=== PATIENT | female | born 1960 | race Caucasian/White ===

== ENCOUNTER 2016-06-25 20:38 | Inpatient (IN) | payer OTHER ==
[~2016-06-25] VITALS: Ht 162.6 cm; Wt 92.6 kg
[2016-06-25] MEDS ORDERED: FAMOTIDINE 20 MG/2 ML IVP ONE (21:00)
[2016-06-25] MEDS ORDERED: SODIUM CHLORIDE FLUSH 10ML SYR IVF ONE (21:00)
[2016-06-25] MEDS ORDERED: ONDANSETRON 2MG/ML, 2ML IVPush ONE (21:00)
[2016-06-25] MEDS ORDERED: FAMOTIDINE 20 MG/2 ML ONE (21:13)
[2016-06-25] MEDS ORDERED: ONDANSETRON 2MG/ML, 2ML ONE (21:13)
[2016-06-25] MEDS ORDERED: SODIUM CHLORIDE 0.9% 1,000ML IVBOLUS ONE ×2 (21:30→23:30)
[2016-06-25 21:40] LABS: ASPARTATE AMINO TRANSFERASE 28 U/L (15-37); BLOOD UREA NITROGEN 73 mg/dL (7-18)
[2016-06-25] MEDS ORDERED: FLUC100T4 PO (21:57)
[2016-06-25] MEDS ORDERED: VICTOZA (21:57)
[2016-06-25] MEDS ORDERED: METF10002 PO (21:57)
[2016-06-25] MEDS ORDERED: ENAL20TA PO (21:57)
[2016-06-25] MEDS ORDERED: GLIP10TA20 PO (21:57)
[2016-06-25] MEDS ORDERED: URSO250T9 PO (22:48)
[2016-06-26] MEDS ORDERED: CALCIUM CARBONATE 500 MG TAB.CHEW PO PRN
[2016-06-26] MEDS ORDERED: ONDANSETRON 2MG/ML, 2ML ONE (01:12)
[2016-06-26] MEDS: ONDANSETRON 2MG/ML, 2ML IVP PRN ×2 (01:15→11:57)
[2016-06-26] MEDS: SODIUM CHLORIDE 0.9% 1,000 ML IV SCH ×3 (02:04→11:58)
[2016-06-26 05:27] LABS: BLOOD UREA NITROGEN 74 mg/dL (7-18)
[2016-06-26] MEDS: HEPARIN 5,000 UNITS/ML, 1ML SQ SCH ×3 (05:58→21:29)
[2016-06-26 06:44] VITALS: BP 113/57
[2016-06-26] MEDS: INSULIN REGULAR 100 UNITS/ML, 3ML VIAL SQ-INSULIN SCH ×4 (07:00→21:35)
[2016-06-26 08:45] LABS: PATH.CAST-FLAG NOT PRESENT; SPERM-FLAG NOT PRESENT; SRC-FLAG NOT PRESENT; XTAL-FLAG NOT PRESENT; YLC-FLAG NOT PRESENT
[2016-06-26 14:00] VITALS: BP 106/65
[2016-06-26] MEDS: SODIUM BICARBONATE 8.4% 75 MEQ in SODIUM CHLORIDE 0.45% 1,000 ML IV SCH (15:30)
[2016-06-26] MEDS ORDERED: CEFTRIAXONE PMX 1GM/50ML 50 ML IV SCH (15:30)
[2016-06-26] MEDS ORDERED: PHARMACY MAY ADJ FOR RENAL FX MC PRN (16:00)
[2016-06-26] MEDS: CIPROFLOXACIN/PMX 400MG/200ML 200 ML IV SCH (18:43)
[2016-06-26 19:09] VITALS: BP 131/69
[2016-06-26] MEDS ORDERED: SODIUM CHLORIDE 0.9% 1,000 ML IV SCH (23:53)
[2016-06-27] MEDS: SODIUM BICARBONATE 8.4% 75 MEQ in SODIUM CHLORIDE 0.45% 1,000 ML IV SCH (00:11)
[2016-06-27 02:01] VITALS: BP_SYST 82; BP_SYST 92; BP_DIAS 42; BP_DIAS 44
[2016-06-27] MEDS: HEPARIN 5,000 UNITS/ML, 1ML SQ SCH ×3 (06:08→21:23)
[2016-06-27 06:35] LABS: BLOOD UREA NITROGEN 75 mg/dL (7-18)
[2016-06-27 08:00] VITALS: BP 123/63
[2016-06-27] MEDS: INSULIN REGULAR 100 UNITS/ML, 3ML VIAL SQ-INSULIN SCH ×2 (08:03→11:54)
[2016-06-27 08:53] LABS: HEPATITIS C VIRUS ANTIBODY Nonreactive (Nonreactive)
[2016-06-27] MEDS: ALLOPURINOL 100 MG TABLET PO SCH (09:00)
[2016-06-27] MEDS ORDERED: MAALOX/HYOSCYAMINE/LIDOCAINE 45 ML BOTTLE PO PRN (11:30)
[2016-06-27] MEDS ORDERED: FAMOTIDINE 20 MG TABLET PO PRN (11:30)
[2016-06-27 14:00] VITALS: BP 131/75
[2016-06-27] MEDS ORDERED: SODIUM BICARBONATE 8.4% 75 MEQ in SODIUM CHLORIDE 0.45% 1,000 ML IV SCH (14:30)
[2016-06-27 15:11] LABS: BLOOD UREA NITROGEN 71 mg/dL (7-18)
[2016-06-27] MEDS: FAMOTIDINE MC SCH ×2 (16:00→23:41)
[2016-06-27] MEDS: PANTOPRAZOLE MC SCH ×2 (16:00→23:41)
[2016-06-27] MEDS: SODIUM CHLORIDE 0.9% 1,000 ML IV SCH ×2 (17:10→23:18)
[2016-06-27] MEDS: INSULIN ASPART 100 UNITS/ML, PEN SQ-INSULIN SCH ×2 (17:24→21:22)
[2016-06-27] MEDS: CIPROFLOXACIN/PMX 400MG/200ML 200 ML IV SCH (18:17)
[2016-06-27 18:58] VITALS: BP 142/62
[2016-06-28 02:12] VITALS: BP 106/64
[2016-06-28] MEDS: SODIUM CHLORIDE 0.9% 1,000 ML IV SCH ×4 (04:49→18:17)
[2016-06-28 05:06] LABS: BLOOD UREA NITROGEN 57 mg/dL (7-18)
[2016-06-28] MEDS ORDERED: PANTOPRAZOLE 20MG TABLET PO SCH (07:30)
[2016-06-28] MEDS: PANTOPRAZOLE MC SCH (08:00)
[2016-06-28] MEDS: FAMOTIDINE MC SCH (08:00)
[2016-06-28 08:35] VITALS: BP 101/51
[2016-06-28] MEDS: INSULIN ASPART 100 UNITS/ML, PEN SQ-INSULIN SCH ×4 (08:41→22:36)
[2016-06-28] MEDS: PANTOPRAZOLE 20MG TABLET PO SCH ×2 (08:42→21:47)
[2016-06-28] MEDS: ALLOPURINOL 100 MG TABLET PO SCH (08:43)
[2016-06-28] MEDS: HEPARIN 5,000 UNITS/ML, 1ML SQ SCH ×2 (08:44→17:39)
[2016-06-28] MEDS ORDERED: MAGNESIUM SULFATE PMX 4GM/100M 100 ML IV ONE (11:00)
[2016-06-28] MEDS ORDERED: MAGNESIUM SULFATE PMX 2GM/50ML 50 ML IV ONE (11:00)
[2016-06-28] MEDS: POTASSIUM CHLORIDE 20 MEQ TAB.ER.PRT PO SCH (12:01)
[2016-06-28] MEDS: MAGNESIUM OXIDE 400 MG TABLET PO SCH ×2 (12:01→21:47)
[2016-06-28 13:06] LABS: UR ALBUMIN 33.9 % (.); UR ALPHA-1-GLOBULIN 0.9 % (.); UR BETA GLOBULIN 30.4 % (.); UR GAMMA GLOBULIN 31.9 % (.); UR M-SPIKE % Not Observed % (Not Observed)
[2016-06-28] MEDS ORDERED: MAALOX/HYOSCYAMINE/LIDOCAINE 45 ML BOTTLE PO ONE (14:00)
[2016-06-28 14:15] VITALS: BP 126/69
[2016-06-28] MEDS ORDERED: FAMOTIDINE 20 MG TABLET PO PRN (15:00)
[2016-06-28] MEDS ORDERED: PANTOPRAZOLE MC SCH ×2 (16:00)
[2016-06-28] MEDS ORDERED: FAMOTIDINE MC SCH ×2 (16:00)
[2016-06-28] MEDS: CIPROFLOXACIN/PMX 400MG/200ML 200 ML IV SCH (18:17)
[2016-06-28 18:54] VITALS: BP 125/73
[2016-06-29 00:50] VITALS: BP 107/70
[2016-06-29] MEDS: SODIUM CHLORIDE 0.9% 1,000 ML IV SCH ×5 (00:58→18:43)
[2016-06-29] MEDS: HEPARIN 5,000 UNITS/ML, 1ML SQ SCH ×3 (01:17→16:53)
[2016-06-29 05:42] LABS: BLOOD UREA NITROGEN 40 mg/dL (7-18)
[2016-06-29 07:47] VITALS: BP 104/56
[2016-06-29] MEDS ORDERED: MAGNESIUM SULFATE PMX 4GM/100M 100 ML IV ONE (08:00)
[2016-06-29] MEDS: INSULIN ASPART 100 UNITS/ML, PEN SQ-INSULIN SCH ×4 (08:24→22:19)
[2016-06-29] MEDS: PANTOPRAZOLE 20MG TABLET PO SCH ×2 (08:25→20:55)
[2016-06-29] MEDS: POTASSIUM CHLORIDE 20 MEQ TAB.ER.PRT PO SCH (08:25)
[2016-06-29] MEDS: MAGNESIUM OXIDE 400 MG TABLET PO SCH ×2 (08:25→20:56)
[2016-06-29] MEDS: ALLOPURINOL 100 MG TABLET PO SCH (08:26)
[2016-06-29 14:48] VITALS: BP 128/73
[2016-06-29] MEDS: CIPROFLOXACIN/PMX 400MG/200ML 200 ML IV SCH (18:43)
[2016-06-29 19:19] VITALS: BP 119/62
[2016-06-30] MEDS ORDERED: TEMAZEPAM 15 MG CAPSULE PO PRN (00:30)
[2016-06-30 01:06] VITALS: BP 131/78
[2016-06-30] MEDS: HEPARIN 5,000 UNITS/ML, 1ML SQ SCH ×3 (01:25→16:31)
[2016-06-30] MEDS: SODIUM CHLORIDE 0.9% 1,000 ML IV SCH ×4 (02:48→20:12)
[2016-06-30 06:42] LABS: ASPARTATE AMINO TRANSFERASE 101 U/L (15-37); BLOOD UREA NITROGEN 25 mg/dL (7-18); TOTAL IRON BINDING CAPACITY 339 mcg/dL (250-450)
[2016-06-30] MEDS: INSULIN ASPART 100 UNITS/ML, PEN SQ-INSULIN SCH ×4 (08:04→21:04)
[2016-06-30] MEDS: PANTOPRAZOLE 20MG TABLET PO SCH ×2 (08:47→21:03)
[2016-06-30] MEDS: ALLOPURINOL 100 MG TABLET PO SCH (08:47)
[2016-06-30] MEDS: MAGNESIUM OXIDE 400 MG TABLET PO SCH ×2 (08:47→21:04)
[2016-06-30] MEDS: POTASSIUM CHLORIDE 20 MEQ TAB.ER.PRT PO SCH (08:47)
[2016-06-30 09:45] VITALS: BP 141/78
[2016-06-30] MEDS ORDERED: CIPROFLOXACIN/PMX 400MG/200ML 200 ML IV SCH (11:00)
[2016-06-30] MEDS ORDERED: MAGNESIUM SULFATE PMX 2GM/50ML 50 ML IV ONE (13:00)
[2016-06-30 16:11] VITALS: BP 125/76
[2016-06-30] MEDS ORDERED: KETOROLAC 30 MG/1 ML IVPush ONE (19:00)
[2016-06-30 20:32] VITALS: BP 123/70
[2016-06-30] MEDS: CIPROFLOXACIN 750 MG TABLET PO SCH (21:04)
[2016-07-01] MEDS: HEPARIN 5,000 UNITS/ML, 1ML SQ SCH ×3 (00:45→16:24)
[2016-07-01 02:51] VITALS: BP 147/81
[2016-07-01] MEDS: SODIUM CHLORIDE 0.9% 1,000 ML IV SCH ×3 (03:13→15:19)
[2016-07-01 05:23] LABS: BLOOD UREA NITROGEN 25 mg/dL (7-18)
[2016-07-01 07:32] VITALS: BP 133/58
[2016-07-01] MEDS: INSULIN ASPART 100 UNITS/ML, PEN SQ-INSULIN SCH ×3 (08:09→16:24)
[2016-07-01] MEDS: MAGNESIUM OXIDE 400 MG TABLET PO SCH (08:10)
[2016-07-01] MEDS: CIPROFLOXACIN 750 MG TABLET PO SCH (08:10)
[2016-07-01] MEDS: POTASSIUM CHLORIDE 20 MEQ TAB.ER.PRT PO SCH (08:10)
[2016-07-01] MEDS: PANTOPRAZOLE 20MG TABLET PO SCH (08:11)
[2016-07-01] MEDS: ALLOPURINOL 100 MG TABLET PO SCH (08:11)
[2016-07-01 12:06] LABS: A/G RATIO 1.2 (0.7-1.7); ALBUMIN 3.1 g/dL (2.9-4.4); ALPHA-1-GLOBULIN 0.1 g/dL (0.0-0.4); GAMMA GLOBULIN 0.6 g/dL (0.4-1.8); IMMUNOGLOBULIN A 253 mg/dL (87-352); IMMUNOGLOBULIN G 617 mg/dL (700-1600); IMMUNOGLOBULIN M 69 mg/dL (26-217); PROTEIN TOTAL 5.8 g/dL (6.0-8.5)
[2016-07-01 14:28] VITALS: BP 138/62
[2016-07-01] MEDS ORDERED: POTA20TA6 PO (15:19)
[2016-07-01] MEDS ORDERED: CIPR750T PO (15:19)
[2016-07-01] MEDS ORDERED: ALLO100T30 PO (15:19)
[2016-07-01] MEDS ORDERED: PANT40TA5 PO (15:20)
== END 2016-07-01 17:01 | disposition home or self-care (01) | DRG 682 ==
LOC: ED 22:05 → EDIP 23:28 → 4NOR 06-26 01:25
PROVIDERS: ATTEND Family Medicine
PROC: 0T9B70Z Drainage of Bladder with Drainage Device, Via Natural or Artificial Opening (ICD-10-PCS; principal; 2016-06-30)
DX: N17.9 Acute kidney failure, unspecified (principal); K85.90 Acute pancreatitis without necrosis or infection, unspecified; E87.2 Acidosis; E87.1 Hypo-osmolality and hyponatremia; N39.0 Urinary tract infection, site not specified; R19.7 Diarrhea, unspecified; D64.9 Anemia, unspecified; E83.42 Hypomagnesemia; D63.8 Anemia in other chronic diseases classified elsewhere; E11.65 Type 2 diabetes mellitus with hyperglycemia; E66.01 Morbid (severe) obesity due to excess calories; E83.39 Other disorders of phosphorus metabolism; E83.51 Hypocalcemia; E87.6 Hypokalemia; E88.01 Alpha-1-antitrypsin deficiency; F17.200 Nicotine dependence, unspecified, uncomplicated; B95.1 Streptococcus, group B, as the cause of diseases classified elsewhere; B96.1 Klebsiella pneumoniae [K. pneumoniae] as the cause of diseases classified elsewhere; I11.9 Hypertensive heart disease without heart failure; K21.9 Gastro-esophageal reflux disease without esophagitis; K70.9 Alcoholic liver disease, unspecified; K75.81 Nonalcoholic steatohepatitis (NASH); N28.1 Cyst of kidney, acquired; R13.10 Dysphagia, unspecified; R31.29 Other microscopic hematuria; Z68.35 Body mass index [BMI] 35.0-35.9, adult; Z86.19 Personal history of other infectious and parasitic diseases; Z88.0 Allergy status to penicillin; Z90.49 Acquired absence of other specified parts of digestive tract; Z88.8 Allergy status to other drugs, medicaments and biological substances
CPT/HCPCS: 36415; 74220; 76770; 80048; 80053; 80074; 81001; 82306; 82436; 82550; 82570; 82728; 82784; 82962; 83036; 83540; 83550; 83605; 83690; 83735; 83935; 83970; 84100; 84133; 84155; 84156; 84165; 84166; 84300; 84439; 84443; 84550; 85025; 85610; 86038; 86160; 86334; 86335; 87077; 87086; 87147; 87186; 87324; 93005; 96361; 96374; 96375; 96376; J0744; J1644; J1815; J1885; J2405; J3475; J7030; S0028

== ENCOUNTER → 2017-03-07 | Outpatient (CLI) | payer OTHER ==
[~2017-03-07] MED LIST: ALLO100T30 PO; CHOL100011 PO; CIPR750T PO; COLE625T12 PO; EMPA25TA PO; ENAL20TA PO; FLUC100T4 PO; GLIP-164 PO; INSU100I32 INJ; LOSA25TA5 PO; METF10002 PO; OMEG1CAP25 PO; PANT40TA5 PO; PIOG30TA4 PO; POTA20TA6 PO; URSO250T9 PO; VICTOZA
== END ==
LOC: CFH 14:10
PROVIDERS: ATTEND Internal Medicine Gastroenterology
DX: K59.00 Constipation, unspecified (principal); R94.5 Abnormal results of liver function studies; K57.81 Diverticulitis of intestine, part unspecified, with perforation and abscess with bleeding; K58.9 Irritable bowel syndrome, unspecified; E11.9 Type 2 diabetes mellitus without complications; Z92.83 Personal history of failed moderate sedation; Z86.010 Personal history of colon polyps
CPT/HCPCS: 74000